=== PATIENT | female | born 1945 | race Caucasian/White ===

== ENCOUNTER 2017-10-14 13:30 | Observation (INO) | payer OTHER ==
[~2017-10-14] VITALS: Ht 160 cm; Wt 91.1 kg
[2017-10-14 14:57] LABS: HEMATOCRIT 44.4 % (36.0-46.0); HEMOGLOBIN 14.9 G/DL (11.9-15.5); MCH 30.2 PG (29.0-34.0); MCHC 33.6 G/DL (30.0-36.0); MCV 89.9 FL (83-99); PLATELET COUNT 226 K/uL (156-360); RBC DIS.WIDTH-CV 12.8 % (11.8-14.6); RBC DIS.WIDTH-SD 42.5 % (39-53); RED BLOOD COUNT 4.94 M/uL (3.80-5.20); WHITE BLOOD COUNT 9.4 K/uL (4.1-10.2)
[2017-10-14 15:08] LABS: POTASSIUM 4.6 mEq/L (3.7-5.4); SODIUM 136 mEq/L (136-147)
[2017-10-14 15:14] LABS: ALBUMIN 3.8 g/dL (3.2-4.8)
[2017-10-14 15:17] LABS: GLUCOSE 99 mg/dL (70-99); TOTAL PROTEIN 8.1 g/dL (6.4-8.3); TROP-I INTERPRETATION NEGATIVE; TROPONIN-I < 0.01 ng/mL (0.0-0.30)
[2017-10-14 15:19] LABS: TOTAL BILIRUBIN 0.6 mg/dL (0.0-1.0)
[2017-10-14 15:20] LABS: ALKALINE PHOSPHATASE 112 IU/L (3-129); CREATININE 0.9 mg/dL (0.6-1.3); GFR ESTIMATE (CALCULATED) > 59 mL/min/
[2017-10-14 15:21] LABS: UREA NITROGEN (BUN) 14 mg/dL (9-23)
[2017-10-14 15:22] LABS: AST (GOT) 39 IU/L (2-34)
[2017-10-14 15:23] LABS: ALT (GPT) 30 IU/L (3-49)
[2017-10-14 16:46] LABS: CHLORIDE 105 mEq/L (99-109)
[2017-10-14] MEDS ORDERED: HYDROCODON-ACE1 EAC8 PO (17:03)
[2017-10-14] MEDS ORDERED: COSENTYX P150 MG/1 M SC (17:04)
[2017-10-14] MEDS ORDERED: AMLODIPINE BESY10 MG PO (17:05)
[2017-10-14] MEDS ORDERED: LOVASTATIN40 MG PO (17:05)
[2017-10-14] MEDS ORDERED: ATARAX,VISTARIL25 MG PO (17:05)
[2017-10-14] MEDS ORDERED: LISINOPRIL40 MG PO (17:05)
[2017-10-14] MEDS ORDERED: LOPRESSOR50 MG PO (17:06)
[2017-10-14] MEDS ORDERED: ZOLOFT100 MG PO (17:06)
[2017-10-14] MEDS ORDERED: ZINC30 MG PO (17:12)
[2017-10-14 22:45] VITALS: BP 183/81
[2017-10-15 00:02] LABS: TROP-I INTERPRETATION NEGATIVE; TROPONIN-I < 0.01 ng/mL (0.0-0.30)
[2017-10-15 00:20] VITALS: BP 119/59
[2017-10-15 04:03] VITALS: BP 140/62
[2017-10-15 05:22] LABS: TROP-I INTERPRETATION NEGATIVE; TROPONIN-I < 0.01 ng/mL (0.0-0.30)
[2017-10-15 11:37] LABS: TROP-I INTERPRETATION NEGATIVE; TROPONIN-I < 0.01 ng/mL (0.0-0.30)
[2017-10-15 12:19] VITALS: BP 139/62
[2017-10-15] MEDS ORDERED: REGLAN10 MG PO (13:13)
[2017-10-15] MEDS ORDERED: TYLENOL REGULA325 MG PO (13:13)
== END 2017-10-15 14:11 | disposition home or self-care (01) ==
LOC: EME 13:30 → EDOF 21:37 → 4SOUTH 21:37 → EDOF 21:37 → ENRESERV 21:38 → 4SOUTH 22:37 → ENPENDDIS 10-15 13:34 → 4SOUTH 10-15 14:11
PROVIDERS: Hospitalist
DX: R07.9 Chest pain, unspecified (principal); I16.0 Hypertensive urgency; I10 Essential (primary) hypertension; R51 Headache; E78.5 Hyperlipidemia, unspecified; E66.01 Morbid (severe) obesity due to excess calories; F41.9 Anxiety disorder, unspecified
CPT/HCPCS: 70450; 71046; 80053; 84484; 85027; 93005; 93306; 99281; 99285; G0378; J1644; J2765